=== PATIENT | male | born 1945 | race Caucasian/White ===

== ENCOUNTER 2019-07-31 15:35 | Inpatient (IN) | payer OTHER ==
[~2019-07-31] VITALS: Ht 182.9 cm; Wt 107.8 kg
--- NOTE | 2019-07-31 15:50 | NUR ---
[facility] LUM[facility] TUMOR. PT C/O BACK PAIN "FOR YEARS". PT RECEIVED 30MG TORADOL AND 0.5MG DILAUDID 45 MIN PRIOR TO ARRIVAL W/ RELLIEF OF PAIN. VS STABLE. NADN. PT RESTING ON GURNEY WITH CALL LIGHT IN REACH. DENIES FURTHER NEEDS AT THIS TIME. AWAITING EVAL BY ED PROVIDER.
--- NOTE | 2019-07-31 16:49 | NUR ---
MD TO BEDSIDE FOR ASSESSMENT. AWAITING ORDERS AT THIS TIME
[2019-07-31] MEDS ORDERED: SODIUM CHLORIDE FLUSH 10ML SYR IVF PRN (17:30)
[2019-07-31] MEDS ORDERED: HYDROmorphone 2 MG/ML, 1ML IVPush PRN (17:30)
--- NOTE | 2019-07-31 17:52 | NUR ---
ADMITTING PROVIDER IN ROOM.
--- NOTE | 2019-07-31 17:52 | NUR ---
ATTEMPED TO CALL REPORT W/ NO ANSWER.
--- NOTE | 2019-07-31 18:03 | NUR ---
REPORT GIVEN TO CHAU DE DIOS.
[2019-07-31] MEDS ORDERED: HYDROmorphone 1 MG/ML, 1ML INJ ONE (18:31)
--- NOTE | 2019-07-31 18:36 | NUR ---
PT MEDICATED PER EMAR. AWAITING TRANSFER TO FLOOR. VS UPDATED.
[2019-07-31 19:23] VITALS: BP 113/66
[2019-07-31] MEDS ORDERED: POLYETHYLENE GLYCOL 17 GM PACKET PO PRN (19:30)
[2019-07-31] MEDS ORDERED: ONDANSETRON ODT 4 MG PO PRN (19:30)
[2019-07-31] MEDS ORDERED: IBUPROFEN 600 MG TABLET PO PRN (19:30)
[2019-07-31] MEDS ORDERED: TEMAZEPAM 15 MG CAPSULE PO PRN (19:30)
[2019-07-31 19:49] LABS: BASOPHILS # (AUTO) 0.04 x10^3/uL (0-0.1); BASOPHILS % (AUTO) 0 % (0-1); EOSINOPHILS % (AUTO) 0 % (1-7); LYMPHOCYTES # (AUTO) 0.21 x10^3/uL (1-3.4); LYMPHOCYTES % (AUTO) 2 % (22-44); MD NO; MEAN CORPUSCULAR HEMOGLOBIN 35.7 pg (27.5-34.5); MEAN CORPUSCULAR VOLUME 104.9 fL (81-97); MEAN PLATELET VOLUME 7.6 fL (7.4-10.4); MONOCYTES # (AUTO) 0.62 x10^3/uL (0.2-0.8); MONOCYTES % (AUTO) 6 % (2-9); NEUTROPHILS # (AUTO) 9.26 x10^3/uL (1.8-6.8); NEUTROPHILS % (AUTO) 91 % (42-75); PLATELET COUNT 191 x10^3/uL (130-400); RED BLOOD COUNT 3.78 x10^6/uL (4.38-5.82); RED CELL DISTRIBUTION WIDTH 14.1 % (9.4-14.8)
[2019-07-31 19:58] LABS: ALBUMIN 2.5 g/dL (3.4-5.0); ANION GAP 9 mmol/L (5-15); CALCIUM 8.5 mg/dL (8.5-10.1); CHLORIDE 100 mmol/L (98-107)
[2019-07-31 20:06] LABS: ALANINE AMINOTRANSFERASE 17 U/L (12-78); ALKALINE PHOSPHATASE 108 U/L (45-117); CREATININE 1.22 mg/dL (0.7-1.3); FREE T4 (FREE THYROXINE) 1.18 ng/dL (0.76-1.46); TOTAL PROTEIN 6.2 g/dL (6.4-8.2)
[2019-07-31] MEDS: ENOXAPARIN 40 MG/0.4 ML SQ SCH (22:41)
[2019-07-31] MEDS: NICOTINE 21 MG/24 HR PATCH.TD24 TD SCH (22:42)
[2019-07-31] MEDS: HYDROmorphone 2 MG/ML, 1ML IVPush PRN (23:23)
[2019-07-31] MEDS: LIDODERM 5% PATCH TD PRN (23:28)
[2019-08-01 01:07] VITALS: BP 110/55
[2019-08-01] MEDS ORDERED: LORazepam 1MG TABLET PO PRN ×4 (02:30)
[2019-08-01] MEDS ORDERED: LORazepam 0.5MG TABLET PO PRN (02:30)
[2019-08-01 05:50] LABS: BASOPHILS # (AUTO) 0.03 x10^3/uL (0-0.1); BASOPHILS % (AUTO) 0 % (0-1); EOSINOPHILS # (AUTO) 0.08 x10^3/uL (0-0.4); EOSINOPHILS % (AUTO) 1 % (1-7); LYMPHOCYTES # (AUTO) 0.59 x10^3/uL (1-3.4); LYMPHOCYTES % (AUTO) 5 % (22-44); MD NO; MEAN CORPUSCULAR HEMOGLOBIN 35.6 pg (27.5-34.5); MEAN CORPUSCULAR VOLUME 104.8 fL (81-97); MEAN PLATELET VOLUME 7.8 fL (7.4-10.4); MONOCYTES # (AUTO) 1.13 x10^3/uL (0.2-0.8); MONOCYTES % (AUTO) 10 % (2-9); NEUTROPHILS # (AUTO) 10.09 x10^3/uL (1.8-6.8); NEUTROPHILS % (AUTO) 85 % (42-75); PLATELET COUNT 203 x10^3/uL (130-400); RED BLOOD COUNT 3.79 x10^6/uL (4.38-5.82)
[2019-08-01 06:09] LABS: ANION GAP 10 mmol/L (5-15); CALCIUM 8.2 mg/dL (8.5-10.1); CHLORIDE 99 mmol/L (98-107)
[2019-08-01] MEDS: ALBUTEROL/IPRATROPIUM 2.5MG/0.5MG, 3 ML NPPB SCH ×4 (06:55→19:32)
[2019-08-01] MEDS ORDERED: GADOTERATE 10 MMOL/20 ML SYR ONE (07:31)
[2019-08-01] MEDS: THIAMINE 100MG TABLET PO SCH (08:34)
[2019-08-01] MEDS: FOLIC ACID 1 MG TABLET PO SCH (08:34)
[2019-08-01 08:44] VITALS: BP 106/57
[2019-08-01] MEDS: SENNA/DOCUSATE TABLET PO SCH (09:00)
[2019-08-01] MEDS: CHLORDIAZEPOXIDE 25 MG CAPSULE PO SCH ×2 (09:00→23:50)
[2019-08-01] MEDS: MULTIVITAMINS/MINERALS TABLET PO SCH (09:00)
[2019-08-01] MEDS: HYDROmorphone 2 MG/ML, 1ML IVPush PRN ×2 (09:12→13:20)
[2019-08-01] MEDS ORDERED: ACET325T26 PO (09:51)
[2019-08-01] MEDS ORDERED: DEXT1DRO6 OP (09:53)
[2019-08-01] MEDS ORDERED: ARTIFICIAL TEARS OP (09:58)
[2019-08-01] MEDS ORDERED: CYAN100074 PO (09:58)
[2019-08-01] MEDS ORDERED: MELO7.5T31 PO (10:19)
[2019-08-01] MEDS ORDERED: SPIR25TA5 PO ×2 (10:19→10:29)
[2019-08-01] MEDS ORDERED: METH500T7 PO (10:19)
[2019-08-01] MEDS ORDERED: Lidocaine 5% TP (10:19)
[2019-08-01] MEDS ORDERED: PHYT5TAB PO (10:19)
[2019-08-01] MEDS ORDERED: Aquaphor TP (10:19)
[2019-08-01] MEDS ORDERED: PRED20TA PO (10:19)
[2019-08-01] MEDS ORDERED: FAMO40TA4 PO (10:19)
[2019-08-01] MEDS ORDERED: FURO80TA77 PO (10:19)
[2019-08-01] MEDS ORDERED: TIOT18CA INH ×2 (10:20→10:33)
[2019-08-01] MEDS ORDERED: ALBU90AE PO (10:32)
[2019-08-01] MEDS: GABAPENTIN 300 MG CAPSULE PO SCH ×3 (12:24→22:03)
[2019-08-01 13:02] LABS: PSA SCREEN 0.16 ng/mL (0.00-4.00)
[2019-08-01 14:45] VITALS: BP 129/73
[2019-08-01 16:22] LABS: CULTURE INDICATED? YES; MICROSCOPIC INDICATED
[2019-08-01] MEDS ORDERED: OMNIPAQUE 350 MG/ML, 100ML BOTTLE ONE (17:49)
[2019-08-01 19:10] VITALS: BP 129/78
[2019-08-01] MEDS ORDERED: FAMOTIDINE 40 MG TABLET PO SCH (21:00)
[2019-08-01] MEDS ORDERED: FAMOTIDINE 20 MG TABLET ONE (21:45)
[2019-08-01] MEDS: NICOTINE 21 MG/24 HR PATCH.TD24 TD SCH (22:00)
[2019-08-01] MEDS: ENOXAPARIN 40 MG/0.4 ML SQ SCH (22:04)
[2019-08-01] MEDS: LIDODERM 5% PATCH TD PRN (22:05)
[2019-08-01] MEDS: OXYcodone/APAP 10/325MG TABLET PO PRN (22:13)
[2019-08-01 23:55] VITALS: BP 119/67
[2019-08-02 02:00] VITALS: BP 124/71
[2019-08-02 05:42] VITALS: BP 121/67
[2019-08-02] MEDS: OXYcodone/APAP 10/325MG TABLET PO PRN (05:45)
[2019-08-02] MEDS: ALBUTEROL/IPRATROPIUM 2.5MG/0.5MG, 3 ML NPPB SCH ×4 (06:19→19:12)
[2019-08-02 06:24] LABS: BASOPHILS # (AUTO) 0.05 x10^3/uL (0-0.1); BASOPHILS % (AUTO) 1 % (0-1); EOSINOPHILS % (AUTO) 0 % (1-7); LYMPHOCYTES # (AUTO) 0.76 x10^3/uL (1-3.4); LYMPHOCYTES % (AUTO) 7 % (22-44); MD NO; MEAN CORPUSCULAR HEMOGLOBIN 35.4 pg (27.5-34.5); MEAN CORPUSCULAR HGB CONC 33.5 g/dL (33.2-36.2); MEAN CORPUSCULAR VOLUME 105.4 fL (81-97); MONOCYTES # (AUTO) 1.12 x10^3/uL (0.2-0.8); MONOCYTES % (AUTO) 10 % (2-9); NEUTROPHILS # (AUTO) 8.83 x10^3/uL (1.8-6.8); NEUTROPHILS % (AUTO) 82 % (42-75); PLATELET COUNT 211 x10^3/uL (130-400); RED BLOOD COUNT 3.71 x10^6/uL (4.38-5.82)
[2019-08-02 06:35] LABS: ALBUMIN 2.4 g/dL (3.4-5.0); ANION GAP 7 mmol/L (5-15); CALCIUM 8.6 mg/dL (8.5-10.1); CHLORIDE 103 mmol/L (98-107)
[2019-08-02 06:39] LABS: ALANINE AMINOTRANSFERASE 16 U/L (12-78); ALKALINE PHOSPHATASE 105 U/L (45-117); BILIRUBIN,TOTAL 0.8 mg/dL (0.2-1.0); CREATININE 1.07 mg/dL (0.7-1.3)
[2019-08-02 07:39] VITALS: BP 117/65
[2019-08-02] MEDS: GABAPENTIN 300 MG CAPSULE PO SCH ×3 (08:29→20:59)
[2019-08-02] MEDS: FOLIC ACID 1 MG TABLET PO SCH (08:29)
[2019-08-02] MEDS: MULTIVITAMINS/MINERALS TABLET PO SCH (08:29)
[2019-08-02] MEDS: THIAMINE 100MG TABLET PO SCH (08:29)
[2019-08-02] MEDS: SENNA/DOCUSATE TABLET PO SCH (08:30)
[2019-08-02 12:39] VITALS: BP 118/64
[2019-08-02] MEDS: HYDROmorphone 2 MG/ML, 1ML IVPush PRN ×2 (13:30→23:02)
[2019-08-02 19:21] VITALS: BP 123/66
[2019-08-02] MEDS: FAMOTIDINE 20 MG TABLET PO SCH (20:59)
[2019-08-02] MEDS: NICOTINE 21 MG/24 HR PATCH.TD24 TD SCH (22:16)
[2019-08-03 00:30] VITALS: BP 113/64
[2019-08-03] MEDS: OXYcodone/APAP 10/325MG TABLET PO PRN (03:01)
[2019-08-03 06:07] LABS: INTERNATIONAL NORMALIZED RATIO 0.97 (0.93-1.1); PROTHROMBIN TIME 10.3 Seconds (9.6-11.5)
[2019-08-03 07:22] VITALS: BP 127/65
[2019-08-03] MEDS: ALBUTEROL/IPRATROPIUM 2.5MG/0.5MG, 3 ML NPPB SCH ×4 (07:36→19:09)
[2019-08-03] MEDS: GUAIFENESIN 200 MG TABLET PO SCH ×4 (08:00→19:44)
[2019-08-03] MEDS ORDERED: FENTANYL PF 100 MCG/2ML IV PRN (09:30)
[2019-08-03] MEDS ORDERED: HYDROmorphone 2 MG/ML, 1ML IVPush PRN (09:30)
[2019-08-03] MEDS ORDERED: hydrALAzine 20 MG/ML, 1ML IV PRN (09:30)
[2019-08-03] MEDS ORDERED: MEPERIDINE/PF 25MG/ML,1ML IVPush PRN (09:30)
[2019-08-03] MEDS ORDERED: MORPHINE SULFATE 4 MG/ML, 1ML IVPush PRN (09:30)
[2019-08-03] MEDS ORDERED: LABETALOL 5MG/ML, 20ML IV PRN (09:30)
[2019-08-03] MEDS ORDERED: ONDANSETRON 2MG/ML, 2ML IV PRN (09:30)
[2019-08-03] MEDS ORDERED: OXYcodone 5 MG/5 ML ORAL.SOL UDC PO PRN (09:30)
[2019-08-03] MEDS ORDERED: FENTANYL PF 250 MCG/5ML ONE (09:47)
[2019-08-03] MEDS ORDERED: MIDAZOLAM 1 MG/ML, 2ML ONE (09:47)
[2019-08-03] MEDS ORDERED: PROPOFOL 10 MG/ML, 20ML ONE (11:11)
[2019-08-03] MEDS ORDERED: NEOSTIGMINE 1 MG/ML, 10ML ONE (11:11)
[2019-08-03] MEDS ORDERED: ROCURONIUM 10MG/ML,5ML ONE (11:11)
[2019-08-03] MEDS ORDERED: GLYCOPYRROLATE 0.2MG/1ML, 5ML ONE (11:11)
[2019-08-03] MEDS ORDERED: CEFAZOLIN 1,000 MG ONE (11:11)
[2019-08-03 13:23] VITALS: BP 125/74
[2019-08-03] MEDS: OxyconTIN ER 10 MG TAB.ER PO SCH (14:00)
[2019-08-03 14:40] VITALS: BP 112/66
[2019-08-03] MEDS: SENNA/DOCUSATE TABLET PO SCH (14:50)
[2019-08-03] MEDS: THIAMINE 100MG TABLET PO SCH (14:50)
[2019-08-03] MEDS: FOLIC ACID 1 MG TABLET PO SCH (14:50)
[2019-08-03] MEDS: MULTIVITAMINS/MINERALS TABLET PO SCH (14:50)
[2019-08-03] MEDS: GABAPENTIN 300 MG CAPSULE PO SCH ×3 (14:51→19:44)
[2019-08-03] MEDS: FAMOTIDINE 20 MG TABLET PO SCH (19:44)
[2019-08-03 19:51] VITALS: BP 122/68
[2019-08-03] MEDS: NICOTINE 21 MG/24 HR PATCH.TD24 TD SCH (22:29)
[2019-08-04 01:44] VITALS: BP 144/75
[2019-08-04] MEDS: OxyconTIN ER 10 MG TAB.ER PO SCH ×2 (02:24→20:47)
[2019-08-04] MEDS: GUAIFENESIN 200 MG TABLET PO SCH ×4 (06:07→20:47)
[2019-08-04 07:03] VITALS: BP 131/56
[2019-08-04] MEDS: ALBUTEROL/IPRATROPIUM 2.5MG/0.5MG, 3 ML NPPB SCH ×4 (08:02→20:00)
[2019-08-04] MEDS: SENNA/DOCUSATE TABLET PO SCH (08:12)
[2019-08-04] MEDS: MULTIVITAMINS/MINERALS TABLET PO SCH (08:12)
[2019-08-04] MEDS: FOLIC ACID 1 MG TABLET PO SCH (08:12)
[2019-08-04] MEDS: THIAMINE 100MG TABLET PO SCH (08:12)
[2019-08-04] MEDS ORDERED: GABAPENTIN 300 MG CAPSULE PO SCH (09:00)
[2019-08-04] MEDS: GABAPENTIN 100 MG CAPSULE PO SCH ×3 (09:00→20:46)
[2019-08-04] MEDS: LIDODERM 5% PATCH TD PRN ×2 (11:58→20:55)
[2019-08-04] MEDS: OXYcodone/APAP 10/325MG TABLET PO PRN (11:58)
[2019-08-04 13:28] VITALS: BP 122/72
[2019-08-04 18:39] VITALS: BP 146/77
[2019-08-04] MEDS ORDERED: GABAPENTIN 300 MG CAPSULE ONE (20:43)
[2019-08-04] MEDS: FAMOTIDINE 20 MG TABLET PO SCH (20:47)
[2019-08-04] MEDS: NICOTINE 21 MG/24 HR PATCH.TD24 TD SCH (21:07)
[2019-08-05 03:14] VITALS: BP_SYST 100; BP_SYST 110; BP_DIAS 70
[2019-08-05] MEDS: LIDODERM 5% PATCH TD PRN (03:48)
[2019-08-05] MEDS: OXYcodone/APAP 10/325MG TABLET PO PRN ×2 (04:48→23:35)
[2019-08-05] MEDS: GUAIFENESIN 200 MG TABLET PO SCH ×4 (04:49→21:25)
[2019-08-05 06:41] VITALS: BP 117/67
[2019-08-05] MEDS: ALBUTEROL/IPRATROPIUM 2.5MG/0.5MG, 3 ML NPPB SCH ×5 (07:15→23:00)
[2019-08-05] MEDS: OxyconTIN ER 10 MG TAB.ER PO SCH ×2 (08:29→09:00)
[2019-08-05] MEDS: SENNA/DOCUSATE TABLET PO SCH (08:29)
[2019-08-05] MEDS: FOLIC ACID 1 MG TABLET PO SCH (08:30)
[2019-08-05] MEDS: THIAMINE 100MG TABLET PO SCH (08:30)
[2019-08-05] MEDS: MULTIVITAMINS/MINERALS TABLET PO SCH (08:30)
[2019-08-05] MEDS: GABAPENTIN 300 MG CAPSULE PO SCH ×3 (09:00→21:25)
[2019-08-05] MEDS: HYDROmorphone 2 MG/ML, 1ML IVPush PRN ×2 (09:23→16:41)
[2019-08-05 12:42] VITALS: BP 128/65
[2019-08-05 18:44] VITALS: BP 126/74
[2019-08-05] MEDS: FAMOTIDINE 20 MG TABLET PO SCH (21:23)
[2019-08-05] MEDS: NICOTINE 21 MG/24 HR PATCH.TD24 TD SCH (21:29)
[2019-08-06] MEDS: ALBUTEROL/IPRATROPIUM 2.5MG/0.5MG, 3 ML NPPB SCH ×6 (03:00→23:00)
[2019-08-06 04:00] VITALS: BP 139/72
[2019-08-06 07:15] VITALS: BP 120/66
[2019-08-06] MEDS: MULTIVITAMINS/MINERALS TABLET PO SCH (09:27)
[2019-08-06] MEDS: SENNA/DOCUSATE TABLET PO SCH (09:27)
[2019-08-06] MEDS: GABAPENTIN 300 MG CAPSULE PO SCH ×4 (09:27→21:49)
[2019-08-06] MEDS: THIAMINE 100MG TABLET PO SCH (09:27)
[2019-08-06] MEDS: FOLIC ACID 1 MG TABLET PO SCH (09:28)
[2019-08-06] MEDS: GUAIFENESIN 200 MG TABLET PO SCH ×4 (09:28→21:49)
[2019-08-06] MEDS: OXYcodone/APAP 10/325MG TABLET PO PRN (09:31)
[2019-08-06] MEDS: ENOXAPARIN 40 MG/0.4 ML SQ SCH (09:31)
[2019-08-06] MEDS ORDERED: MAGNESIUM CITRATE 300ML ORAL SOL PO ONE (10:00)
[2019-08-06] MEDS: HYDROmorphone 2 MG/ML, 1ML IVPush PRN ×4 (11:50→22:18)
[2019-08-06 14:05] VITALS: BP 110/52
[2019-08-06] MEDS: SODIUM CHLORIDE 0.9% 1,000 ML IV SCH (15:22)
[2019-08-06 16:23] LABS: ALANINE AMINOTRANSFERASE 16 U/L (12-78); ALBUMIN 2.1 g/dL (3.4-5.0); ANION GAP 7 mmol/L (5-15); CALCIUM 8.8 mg/dL (8.5-10.1); CHLORIDE 114 mmol/L (98-107); CREATININE 1.11 mg/dL (0.7-1.3)
[2019-08-06 16:25] LABS: ALKALINE PHOSPHATASE 102 U/L (45-117); BILIRUBIN,TOTAL 1.5 mg/dL (0.2-1.0); TOTAL PROTEIN 5.8 g/dL (6.4-8.2)
[2019-08-06 19:35] VITALS: BP 110/62
[2019-08-06] MEDS: FAMOTIDINE 20 MG TABLET PO SCH (21:49)
[2019-08-06] MEDS: NICOTINE 21 MG/24 HR PATCH.TD24 TD SCH (22:17)
[2019-08-07 01:02] VITALS: BP 125/57
[2019-08-07] MEDS: HYDROmorphone 2 MG/ML, 1ML IVPush PRN ×5 (01:52→11:36)
[2019-08-07] MEDS: ALBUTEROL/IPRATROPIUM 2.5MG/0.5MG, 3 ML NPPB SCH ×6 (03:00→23:25)
[2019-08-07] MEDS: GUAIFENESIN 200 MG TABLET PO SCH ×3 (05:51→11:00)
[2019-08-07] MEDS: GABAPENTIN 300 MG CAPSULE PO SCH ×3 (05:51→11:00)
[2019-08-07] MEDS: SODIUM CHLORIDE 0.9% 1,000 ML IV SCH (05:51)
[2019-08-07 07:01] VITALS: BP 106/56
[2019-08-07] MEDS: THIAMINE 100MG TABLET PO SCH ×2 (08:36→09:00)
[2019-08-07] MEDS: ENOXAPARIN 40 MG/0.4 ML SQ SCH ×2 (08:36→09:30)
[2019-08-07] MEDS: FOLIC ACID 1 MG TABLET PO SCH ×2 (08:36→09:00)
[2019-08-07] MEDS: MULTIVITAMINS/MINERALS TABLET PO SCH ×2 (08:36→09:00)
[2019-08-07] MEDS: SENNA/DOCUSATE TABLET PO SCH ×2 (08:36→09:00)
[2019-08-07] MEDS: OXYcodone/APAP 10/325MG TABLET PO PRN (08:51)
[2019-08-07] MEDS ORDERED: PINK LADY ENEMA 490 ML BOTTLE PR ONE (09:00)
[2019-08-07] MEDS ORDERED: morphine SULFATE 100 MG in DEXTROSE 5% 90 ML IV PRN (12:28)
[2019-08-07] MEDS ORDERED: ONDANSETRON 2MG/ML, 2ML IVPush PRN (12:30)
[2019-08-07] MEDS ORDERED: BEER 12 OZ CAN PO PRN (12:30)
[2019-08-07] MEDS: HYDROmorphone 1 MG/ML, 1ML INJ IVPush PRN ×2 (13:35→16:30)
[2019-08-07] MEDS: SCOPOLAMINE PATCH, 1.5MG PATCH.TD72 TD PRN (13:35)
[2019-08-07 13:56] VITALS: BP 111/65
[2019-08-07] MEDS: LORazepam 2 MG/ML, 1ML IVPush PRN ×2 (17:26→21:51)
[2019-08-07] MEDS: MORPHINE 30MG/30ML PCA.SYR IV PRN (21:05)
[2019-08-07] MEDS: NICOTINE 21 MG/24 HR PATCH.TD24 TD SCH (21:51)
[2019-08-07] MEDS: ATROPINE OPHTH SOLN 1%, 5ML PO PRN (23:05)
[2019-08-08] MEDS: ALBUTEROL/IPRATROPIUM 2.5MG/0.5MG, 3 ML NPPB SCH (03:15)
[2019-08-08] MEDS: LORazepam 2 MG/ML, 1ML IVPush PRN ×3 (05:18→21:21)
[2019-08-08] MEDS ORDERED: ALBUTEROL/IPRATROPIUM 2.5MG/0.5MG, 3 ML NPPB PRN (10:00)
[2019-08-08] MEDS: ATROPINE OPHTH SOLN 1%, 5ML PO PRN ×3 (12:20→21:21)
[2019-08-08] MEDS: MORPHINE 30MG/30ML PCA.SYR IV PRN ×2 (12:20→22:32)
[2019-08-08] MEDS: NICOTINE 21 MG/24 HR PATCH.TD24 TD SCH (21:21)
[2019-08-09] MEDS: LORazepam 2 MG/ML, 1ML IVPush PRN (03:50)
[2019-08-09] MEDS: ATROPINE OPHTH SOLN 1%, 5ML PO PRN ×3 (03:54→21:32)
[2019-08-09] MEDS: MORPHINE 30MG/30ML PCA.SYR IV PRN ×3 (07:48→22:24)
[2019-08-09] MEDS: NICOTINE 21 MG/24 HR PATCH.TD24 TD SCH (21:45)
[2019-08-10] MEDS: ATROPINE OPHTH SOLN 1%, 5ML PO PRN ×4 (02:16→23:40)
[2019-08-10] MEDS: MORPHINE 30MG/30ML PCA.SYR IV PRN ×3 (06:07→21:47)
[2019-08-10] MEDS: SCOPOLAMINE PATCH, 1.5MG PATCH.TD72 TD PRN (19:52)
[2019-08-10] MEDS: NICOTINE 21 MG/24 HR PATCH.TD24 TD SCH (22:00)
[2019-08-11] MEDS: ATROPINE OPHTH SOLN 1%, 5ML PO PRN ×2 (03:47→05:19)
[2019-08-11] MEDS: MORPHINE 30MG/30ML PCA.SYR IV PRN ×2 (05:13→12:42)
[2019-08-11] MEDS: LORazepam 2 MG/ML, 1ML IVPush PRN (17:11)
== END 2019-08-11 20:30 | disposition expired | DRG 542 ==
LOC: ED 17:14 → EDIP 17:15 → ED 17:32 → 3N 19:06 → 4NW 08-03 22:14
PROVIDERS: ADMIT Internal Medicine; ATTEND Internal Medicine
PROC: 07D78ZX Extraction of Thorax Lymphatic, Via Natural or Artificial Opening Endoscopic, Diagnostic (ICD-10-PCS; principal; 2019-08-03 10:00)
DX: C79.51 Secondary malignant neoplasm of bone (principal); J96.21 Acute and chronic respiratory failure with hypoxia; M84.58XA Pathological fracture in neoplastic disease, other specified site, initial encounter for fracture; C34.11 Malignant neoplasm of upper lobe, right bronchus or lung; E87.1 Hypo-osmolality and hyponatremia; F10.239 Alcohol dependence with withdrawal, unspecified; J44.1 Chronic obstructive pulmonary disease with (acute) exacerbation; K56.7 Ileus, unspecified; I11.0 Hypertensive heart disease with heart failure; E66.9 Obesity, unspecified; F17.200 Nicotine dependence, unspecified, uncomplicated; G89.29 Other chronic pain; I50.9 Heart failure, unspecified; I87.2 Venous insufficiency (chronic) (peripheral); M47.26 Other spondylosis with radiculopathy, lumbar region; M48.061 Spinal stenosis, lumbar region without neurogenic claudication; M51.16 Intervertebral disc disorders with radiculopathy, lumbar region; Z51.5 Encounter for palliative care; R91.1 Solitary pulmonary nodule; Z66 Do not resuscitate; Y90.9 Presence of alcohol in blood, level not specified; K70.30 Alcoholic cirrhosis of liver without ascites; Z98.49 Cataract extraction status, unspecified eye; Z71.3 Dietary counseling and surveillance; Z68.32 Body mass index [BMI] 32.0-32.9, adult; Z79.899 Other long term (current) drug therapy; R59.0 Localized enlarged lymph nodes; X58.XXXA Exposure to other specified factors, initial encounter; Y93.89 Activity, other specified; Y92.89 Other specified places as the place of occurrence of the external cause; Y99.8 Other external cause status
CPT/HCPCS: 36415; 74018; 99285; J7620; 31629; 71045; 71260; 72158; 74177; 80048; 80053; 81001; 82140; 83735; 83880; 84100; 84439; 84443; 85025; 85610; 87086; 88172; 88173; 88177; 88305; 88341; 88342; 93306; 93356; 94640; G0103; G0378; J0690; J1170; J1650; J2250; J2270; J2704; J2710; J3010; Q0162; Q9967; A9575; J2060; J7030; J7512